=== PATIENT | female | born 1985 | race Caucasian/White ===

== ENCOUNTER → 2019-11-25 | Outpatient (CLI) | payer BC | LOC: GMAJ 15:12 | PROVIDERS: ATTEND Family Medicine | DX: R53.83 Other fatigue (principal); R11.0 Nausea ==

== ENCOUNTER → 2019-11-30 | Outpatient (CLI) | payer BC ==
--- NOTE | 2019-12-02 16:25 | US ---
EXAM DESCRIPTION: Abdomen, Complete CLINICAL HISTORY: Elevated liver transaminase levels COMPARISON: None available TECHNIQUE: Real-time sonographic images of the abdomen are obtained. FINDINGS: The liver is normal in size measuring 13.0 cm at the midclavicular line. Liver parenchyma echogenicity is increased, compatible with fatty infiltration (hepatic steatosis). No focal hepatic masses seen. Gallbladder is unremarkable. No cholelithiasis, gallbladder wall thickening, nor pericholecystic fluid. The common bile duct measures 3.5 mm in greatest diameter. The right kidney measures 11.3 x 4.7 x 5.1 cm. The left kidney measures 9.8 x 5.6 x 4.8 cm. Both kidneys show normal renal cortical echogenicity. No hydronephrosis is seen. Visualized portion of the pancreas is unremarkable. The spleen measures 8.9 cm. Visualized IVC and abdominal aorta are within normal limits. IMPRESSION: 1. Increased liver parenchymal echogenicity compatible with fatty infiltration (hepatic steatosis) versus liver parenchymal disease. Electronically signed by: Jose South MD 11/30/2019 4:36 PM CDT
== END ==
LOC: US 10:39
PROVIDERS: ATTEND Family Medicine
DX: R74.01 Elevation of levels of liver transaminase levels (principal); K76.9 Liver disease, unspecified